=== PATIENT | female | born 1990 | race Caucasian/White ===

== ENCOUNTER 2017-04-27 19:16 | Emergency (ER) | payer SELFPAY ==
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
[2017-04-27] MEDS: ACETAMINOPHEN 500 MG TABLET PO ONE (20:43)
[2017-04-27 22:29] VITALS: BP 111/74
== END 2017-04-27 20:45 | disposition home or self-care (01) ==
LOC: ED 19:16
DX: R51 Headache (principal); Z3A.22 22 weeks gestation of pregnancy; V87.7XXA Person injured in collision between other specified motor vehicles (traffic), initial encounter; Y93.9 Activity, unspecified; Y99.9 Unspecified external cause status
CPT/HCPCS: 99283

== ENCOUNTER → 2018-12-12 | Emergency (ER) | payer OTHER | LOC: ED 21:04 | DX: R21 Rash and other nonspecific skin eruption (principal) | CPT/HCPCS: 96372; 99283 ==

== ENCOUNTER 2019-02-15 21:01 | Emergency (ER) | payer OTHER ==
[2019-02-15 21:36] VITALS: BP 126/54
[2019-02-15] MEDS ORDERED: CEFDINIR 300 MG CAPSULE PO ONE (21:39)
--- NOTE | 2019-02-15 21:39 | ED Physician Documentation ---
Ear Complaints - HISTORIAN Historian: patient - HPI Stated Complaint: L ear pain Chief Complaint: Ear Complaints Timing: worse Location of Pain: L ear Severity: severe Associated Symptoms: sharp pain, aching Further Comments: yes (28 year old female patient presents with left ear pain which started this afternoon. Is finishing a zpak for URI.) - ROS CONST: recent illness (finishing z omayra) CVS/RESP: none MS/SKIN/LYMPH: none NEURO/PSYCH: none All Systems -: Yes - PAST HX Past History: none Allergies/Adverse Reactions: Allergies Allergy/AdvReac Type Severity Reaction Status Date / Time Penicillins Allergy Verified 02/15/19 21:26 Home Medications: Ambulatory Orders Medication Instructions Recorded Azithromycin 250 mg PO DAILY 02/15/19 Cefdinir [Omnicef] 300 mg PO BID #20 capsule 02/15/19 Norgestimate-Ethinyl Estradiol 1 each PO DAILY 02/15/19 [Sprintec 28 Day Tablet] - SOCIAL HX Smoking History: non-smoker - FAMILY HX Family History: No - VITAL SIGNS Vital Signs: Vital Signs Temp Pulse Resp BP Pulse Ox 98.1 F 93 H 16 126/54 98 02/15/19 21:01 02/15/19 21:01 02/15/19 21:01 02/15/19 21:01 02/15/19 21:01 - REVIEWED ASSESSMENTS Nursing Assessment Reviewed: Yes Vitals Reviewed: Yes Ear Complaint Physical Exam - EXAM General Appearance: no acute distress, alert Ear: left, erythema, bulging of TM Mouth/Throat: lips nml, gums nml, pharynx nml Nose: nml inspection Head/Neck: atraumatic, neck nml inspection Resp/CVS: chest non-tender, breath sounds nml, heart sounds nml Skin: nml color, no skin rash Neuro/Psych: oriented x3, mood/affect nml Discharge Clincal Impression: Left otitis media Qualifiers: Otitis media type: suppurative Chronicity: acute Recurrence: non-recurrent Spontaneous tympanic membrane rupture: without spontaneous rupture Qualified Code(s): H66.002 - Acute suppurative otitis media without spontaneous rupture of ear drum, left ear Prescriptions: Cefdinir [Omnicef] 300 mg PO BID #20 capsule Referrals: Lisa Hernandez MD [Primary Care Provider] - 2 Days Additional Instructions: Change your antibiotic to cifdinir. Use an over the counter decongestant Tylenol or ibuprofen as needed for pain Condition: Stable Disposition: 01 HOME, SELF-CARE Decision to Admit: NO Decision Time: 21:39
[2019-02-15] MEDS ORDERED: IBUPROFEN 200 MG TABLET PO ONE (21:42)
== END 2019-02-15 21:59 | disposition home or self-care (01) ==
LOC: ED 21:01
DX: H66.002 Acute suppurative otitis media without spontaneous rupture of ear drum, left ear (principal)
CPT/HCPCS: 99283; 99284

== ENCOUNTER 2019-04-29 16:30 | Outpatient (CLI) | payer OTHER | END 2019-04-29 16:40 | LOC: RAD 16:30 | PROVIDERS: ATTEND Family Medicine | DX: R10.32 Left lower quadrant pain (principal) | CPT/HCPCS: 74178; Q9967 ==